=== PATIENT | male | born 1930 | race Caucasian/White ===

== ENCOUNTER 2016-11-25 15:19 | Inpatient (IN) | payer OTHER ==
--- NOTE | 2016-11-25 15:24 | EDPHY ---
H & P Time Seen by Provider: 11/25/16 15:21 HPI/ROS: CHIEF COMPLAINT: Shortness of breath HISTORY OF PRESENT ILLNESS: Patient is an 86-year-old man with a oxygen- dependent COPD who tells me he has been feeling short of breath "since last summer." About 5 weeks ago was pretty severe and he saw his physician a week ago, was prescribed Zithromax, which was finished yesterday. Has had a cough with brown mucus for the last to 2 weeks. He has had increased his oxygen from 2 and half to 4 L. Symptoms today are severe. Not associated with chest pain. REVIEW OF SYSTEMS: Eye: no change in vision ENT: no sore throat Cardiac: no chest pain or syncope Pulmonary: HPI Abdomen: no vomiting, diarrhea, abdominal pain. Black stools worse past 2 days. Musculoskeletal: no back pain, does have pedal edema. Skin: no rash Neuro: no headache Constitutional: no fever : no urinary symptoms A comprehensive 10 point review of systems is otherwise negative aside from elements mentioned in the history of present illness. PAST MEDICAL HISTORY: By Dr. Greenberg dated 06/22/2010 personally reviewed. Includes oxygen-dependent COPD, hypertension, BPH, ventral and inguinal hernia. Appendectomy in 1994, Lasik surgery. CLL Social history: Former smoker, quit in 1976. General Appearance: Alert and conversant, cooperative. Eyes: No scleral icterus. ENT, Mouth: Normal mucous membranes. Respiratory: Scattered wheezes, occasional rhonchi. Cardiovascular: Regular rate and rhythm. Gastrointestinal: Abdomen is soft and non tender. Dark black stool sent for Hemoccult. Neurological: Alert and oriented x3. Normally conversant. Face symmetric, normal movement and sensation in all extremities. Skin: Warm and dry, no rashes. Musculoskeletal: Bilateral 2+ pitting peripheral edema. Psychiatric: Not agitated. Emergency Department course/MDM: Patient presents with worsening COPD as well as possible evidence of acute upper gastrointestinal bleeding. Protonix 40 mg IV. Supplemental oxygen placed is the patient is 88% on 4-6 L, Oxymizer mask brings up to 94%. Plan for admission with Gastroenterology consultation. 1630: Results discussed. CT recommended by Kavitha, discussed and consented with the patient. 1720: Discussed with hospitalist and interventional radiology. Plan for venous ultrasound of the legs, will consider filter placement. Central Supply Manager hospitalist requested no anticoagulation at this time. Specific reason for no anticoagulation is the presence of active upper gastrointestinal bleeding, and hospitalist request. Per radiologist's the patient specifically does not have pneumonia. 1825: Ultrasound per sophy Miller shows left Jones cyst and no DVT. Constitutional: Initial Vital Signs Temperature (C) 36.7 C 11/25/16 15:24 Heart Rate 89 11/25/16 15:24 Respiratory Rate 20 11/25/16 15:24 Blood Pressure 135/52 H 11/25/16 15:24 O2 Sat (%) 88 L 11/25/16 15:24 O2 Delivery Mode Oxymizer O2 (L/minute) 6 Allergies/Adverse Reactions: pneumococcal vaccine [Pneumococcal Vaccine] Allergy (Unknown, Verified 06/22/10 09:35) Tetanus Vaccines and Toxoid [Tetanus] Allergy (Unknown, Verified 06/22/10 09:35) Home Medications: Medication Instructions Recorded Acetaminophen [Tylenol ES 500 mg 500 mg PO DAILY 11/25/16 (*)] Albuterol Sulfate [Proair Hfa] 2 puffs IH Q6H PRN 11/25/16 Calcium Carbonate [Calcium] 1,200 mg PO DAILY 11/25/16 Cholecalciferol Vit D3 [Vitamin D3 1,000 units PO DAILY 11/25/16 (*)] Doxazosin Mesylate 8 mg PO HS 11/25/16 Ferrous Sulfate [Ferrous Sulf 325 325 mg PO DAILY 11/25/16 MG (*)] Furosemide [Lasix 40 MG (*)] 40 mg PO DAILY 11/25/16 Ipratropium/Albuterol [Duoneb (*)] 3 ml IH Q6H PRN 11/25/16 Lisinopril [Zestril 20 mg (*)] 20 mg PO DAILY 11/25/16 Mometasone/Formoterol [Dulera 200 2 puffs IH BID 11/25/16 Mcg/5 Mcg Inhaler] Omeprazole 40 mg PO DAILY@1200 11/25/16 Medical Decision Making - Diagnostics EKG Interpretation: 12-lead EKG interpreted by me; official reading is in trace master. My interpretation is sinus rhythm with left axis and low frontal lead voltage, rate 80. Imaging Results: Imaging Impressions Chest X-Ray 11/25/16 15:51 Impression: 1. COPD and extensive perihilar bronchitis/bronchiolitis. 2. Interim development of patchy areas of airspace disease, some of which are irregularly-marginated (particularly in the right [id number] lung zones) and a new infiltrate in the lingula, with chronic right middle lobe atelectasis. While the above features may be related to areas of multicentric pneumonia, underlying neoplastic changes cannot be excluded. 3. Borderline-cardiomegaly. Findings were discussed with FAISAL KRAMER MD at 16:32, on 11/25/2016. Chest/Thorax CTA 11/25/16 16:30 Impression: 1. Small pulmonary embolus in the right upper lobe. 2. Right upper lobe 2-cm spiculated mass suspicious for bronchogenic carcinoma , with multiple enlarged mediastinal and bilateral hilar lymphadenopathy. 3. Small right pleural effusion and minimal left pleural effusion. 4. Bilateral chronic bronchitis and airways disease, with bilateral lower lobe mucous plugging. Findings and recommendations discussed with Emergency Department physician, Faisal Kramer M.D., at 1705 hours, on November 25, 2016. Final report concurs with initial preliminary interpretation. A test result has been communicated to a licensed care provider and documented in the [employer] Critical Result system on 11/25/2016 17:13, Message ID [id number]. Chest Xray reviewed with Kavitha 9200 Differential Diagnosis: Differential diagnosis considered for shortness of breath including but not limited to pulmonary infectious process, COPD, asthma, pulmonary embolus and congestive heart failure. Consult/Admit Bed Type: [place] 1722, [facility] [place] [facility]24, [facility] 1655 Critical Care Time: Critical care time spent by me, Dr. Kramer, exclusively with the care of this patient was 40 minutes, exclusive of PA or CONCRETE HANDLER time and exclusive of separate procedures. The organ system at risk was pulmonary and hematologic and I ordered supplemental oxygen, nebulizer bronchodilator treatments, intravenous proton pump inhibitor, discussion with master police detective and hospitalist and radiologist; to stabilize the patient and prevent worsening of the patient's condition. - Data Points Laboratory Results: Laboratory Results 11/25/16 15:45 11/25/16 15:45 11/25/16 11/25/16 11/25/16 16:02 15:45 15:45 WBC RBC Hgb POC Hgb 11.6 gm/dL L gm/dL (14.5-17.3) Hct POC Hct 34 % L % (42.8-50.6) MCV MCH MCHC RDW Plt Count MPV Neut % (Auto) Lymph % (Auto) [place] % (Auto) Eos % (Auto) Baso % (Auto) Nucleat RBC Rel Count Absolute Neuts (auto) Absolute Lymphs (auto) Absolute Monos (auto) Absolute Eos (auto) Absolute Basos (auto) Absolute Nucleated RBC Immature Gran % Seg Neutrophils % Lymphocytes % Monocytes % Eosinophils % Immature Gran # Absolute Seg Neuts Absolute Lymphocytes Absolute Monocytes Absolute Eosinophils Atypical Lymphocytes Platelet Estimate Hypochromasia Microcytic Cells Smear Review By PT 13.5 SEC SEC (12.0-15.0) INR 1.04 (0.83-1.16) APTT 33.1 SEC SEC (23.0-38.0) POC Sodium 138 mEq/L mEq/L (134-144) Sodium 134 mEq/L mEq/L (134-144) POC Potassium 4.0 mEq/L mEq/L (3.3-5.0) Potassium 4.2 mEq/L mEq/L (3.5-5.2) POC Chloride 96 mEq/L mEq/L (96-108) Chloride 98 mEq/L mEq/L (97-110) Carbon Dioxide 28 mEq/l mEq/l (22-31) Anion Gap 8 mEq/L mEq/L (8-16) POC BUN 14 mg/dL mg/dL (7-23) BUN 16 mg/dL mg/dL (7-23) Creatinine 0.7 mg/dL mg/dL (0.7-1.3) POC Creatinine 0.7 mg/dL L mg/dL (0.8-1.5) Estimated GFR > 60 Glucose 110 mg/dL H mg/dL (70-100) POC Glucose 113 mg/dL H mg/dL (70-100) Calcium 8.9 mg/dL mg/dL (8.5-10.4) Patient ABO/Rh Antibody Screen 11/25/16 11/25/16 15:45 15:45 WBC 23.58 10^3/uL H 10^3/uL (3.80-9.50) RBC 3.80 10^6/uL L 10^6/uL (4.40-6.38) Hgb 9.8 g/dL L g/dL (13.7-17.5) POC Hgb Hct 31.3 % L % (40.0-51.0) POC Hct MCV 82.4 fL fL (81.5-99.8) MCH 25.8 pg L pg (27.9-34.1) MCHC 31.3 g/dL L g/dL (32.4-36.7) RDW 19.9 % H % (11.5-15.2) Plt Count 164 10^3/uL 10^3/uL (150-400) MPV 10.2 fL fL (8.7-11.7) Neut % (Auto) Not Reported Lymph % (Auto) Not Reported [place] % (Auto) Not Reported Eos % (Auto) Not Reported Baso % (Auto) Not Reported Nucleat RBC Rel Count 0.0 % % (0.0-0.2) Absolute Neuts (auto) Not Reported Absolute Lymphs (auto) Not Reported Absolute Monos (auto) Not Reported Absolute Eos (auto) Not Reported Absolute Basos (auto) Not Reported Absolute Nucleated RBC 0.00 10^3/uL 10^3/uL (0-0.01) Immature Gran % Not Reported Seg Neutrophils % 16 % % Lymphocytes % 55 % % Monocytes % 28 % % Eosinophils % 1 % % Immature Gran # Not Reported Absolute Seg Neuts 3.77 10^/uL 10^/uL (1.70-6.50) Absolute Lymphocytes 12.97 10^3/uL H 10^3/uL (1.00-3.00) Absolute Monocytes 6.60 10^3/uL H 10^3/uL (0.30-0.80) Absolute Eosinophils 0.24 10^3/uL 10^3/uL (0.03-0.40) Atypical Lymphocytes 1+ H Platelet Estimate ADEQUATE (ADEQ) Hypochromasia 2+ H Microcytic Cells 1+ H Smear Review By Pending PT INR APTT POC Sodium Sodium POC Potassium Potassium POC Chloride Chloride Carbon Dioxide Anion Gap POC BUN BUN Creatinine POC Creatinine Estimated GFR Glucose POC Glucose Calcium Patient ABO/Rh A POSITIVE Antibody Screen NEGATIVE Medications Given: Discontinued Medications Albuterol/Ipratropium (Duoneb) 3 ml IH EDNOW ONE Stop: 11/25/16 15:52 Last Admin: 11/25/16 16:06 Dose: 3 ml Furosemide (Lasix Injection) 40 mg IVP ONCE ONE Stop: 11/25/16 18:10 Last Admin: 11/25/16 18:45 Dose: 40 mg Pantoprazole Sodium 40 mg/ (Sodium Chloride) 100 mls @ 200 mls/hr IV EDNOW ONE Stop: 11/25/16 16:37 Last Admin: 11/25/16 16:33 Dose: 100 mls Point of Care Test Results: 11/25/16 16:02 POC Sodium 138 POC Potassium 4.0 POC Chloride 96 POC BUN 14 POC Creatinine 0.7 L POC Glucose 113 H Departure - Departure Disposition: [facility] Acute Clinical Impression: Upper GI bleed, Chronic obstructive pulmonary disease with acute exacerbation Pulmonary embolism Qualifiers: Pulmonary embolism type: other Chronicity: acute Acute cor pulmonale presence: without acute cor pulmonale Qualified Code(s): I26.99 - Other pulmonary embolism without acute cor pulmonale Condition: Serious
[2016-11-25] MEDS ORDERED: IPRATROPIUM/ALBUTEROL 3 ML DEYVIAL IH ONE (15:51)
--- NOTE | 2016-11-25 16:01 | CPEKG ---
Heart Rate: 80 RR Interval: 750 P-R Interval: 140 QRSD Interval: 80 QT Interval: 360 QTC Interval: 416 P Franklin: 76 QRS Franklin: -42 T Wave Franklin: 54 EKG Severity - OTHERWISE NORMAL ECG - EKG Impression: SINUS RHYTHM EKG Impression: LEFT AXIS DEVIATION EKG Impression: LOW VOLTAGE IN FRONTAL LEADS Electronically Signed By: Taz Xie 25-Nov-2016 16:06:27
[2016-11-25 16:03] LABS: ADD DIFF? YES; ADD MORPH? NO; ATYPICAL LYMPHOCYTE FLAG 90 (0-99); FRAGMENT RBC FLAG 0 (0-99); HEMATOCRIT 31.3 % (40.0-51.0); HEMOGLOBIN 9.8 g/dL (13.7-17.5); LEFT SHIFT FLG 10 (0-99); LIPEMIA HEMOLYSIS FLAG 80 (0-99); MEAN CELL HEMOGLOBIN 25.8 pg (27.9-34.1); MEAN CELL HEMOGLOBIN CONCENTR. 31.3 g/dL (32.4-36.7); MEAN CELL VOLUME 82.4 fL (81.5-99.8); MEAN PLATELET VOLUME 10.2 fL (8.7-11.7); PLATELET CLUMPS FLAG 0 (0-99); PLATELET COUNT 164 10^3/uL (150-400); RED CELL DISTRIBUTION WIDTH 19.9 % (11.5-15.2)
[2016-11-25 16:04] LABS: ADD SCAN? NO
[2016-11-25] MEDS ORDERED: PANTOPRAZOLE SODIUM 40 MG in NS 100 ML IV ONE (16:08)
[2016-11-25 16:14] LABS: ANION GAP 8 mEq/L (8-16); CALCIUM 8.9 mg/dL (8.5-10.4); CARBON DIOXIDE 28 mEq/l (22-31); CHLORIDE 98 mEq/L (97-110); CREATININE 0.7 mg/dL (0.7-1.3); GLOMERULAR FILTRATION RATE > 60; GLUCOSE 110 mg/dL (70-100); POTASSIUM 4.2 mEq/L (3.5-5.2); SODIUM 134 mEq/L (134-144)
[2016-11-25] MEDS ORDERED: PANTOPRAZOLE SODIUM 40 MG VIAL ONE (16:26)
[2016-11-25] MEDS ORDERED: NS 100 ML BAG IV ONE (16:26)
[2016-11-25 16:27] LABS: HYPOCHROMIA 2+; MICROCYTES 1+; PLATELET ESTIMATE ADEQUATE (ADEQ)
[2016-11-25] MEDS ORDERED: IOPAMIDOL (ISOVUE 370) 100 ML BTL IV ONE (16:34)
[2016-11-25] MEDS ORDERED: ALBUTEROL 3 ML DEYVIAL IH PRN (17:59)
[2016-11-25] MEDS ORDERED: ACETAMINOPHEN 325 MG TAB PO PRN (17:59)
[2016-11-25] MEDS ORDERED: ZOLPIDEM TARTRATE 5 MG TAB PO PRN (17:59)
[2016-11-25] MEDS ORDERED: ONDANSETRON 4 MG/2 ML VIAL IVP PRN (17:59)
[2016-11-25] MEDS ORDERED: FUROSEMIDE 40 MG/4 ML VIAL IVP ONE (18:09)
--- NOTE | 2016-11-25 18:37 | PDGENHP ---
History and Physical History and Physical: HISTORY AND PHYSICAL CC: cough and sob HISTORY:the patient has chronic copd and r side chf with edema of legs, comes into the ER with cough and shortness of breath. Notably he was just treated recently with antibiotics for a respiratory infection by Dr. Dimas. It sounds like he was not necessarily evaluated with imaging at that time. He comes in today with worsening shortness of breath and cough. Notably he says that his legs are as usual fairly swollen but a little bit less swollen than they were before. He feels somewhat lightheaded. There is no fever. There is no chest pain or pleuritic pain is no pain in his legs. He does have also recently onset of melena for the last 7 days. He does not have abdominal pain nausea or vomiting. He is not on anticoagulants. He is being followed by Dr. Dinh Nicholson for CLL ROS: A comprehensive 10 system review revealed no other significant findings PAST MEDICAL HISTORY: CLL FAMILY MEDICAL HISTORY: SOCIAL HISTORY: MEDICATIONS: The patients list has been reconciled by our clinical pharmacist in the EMR. I have reviewed the list and ordered appropriate medicines. PHYSICAL EXAMINATION: Vital Signs: as I was in the room with him his pulse was 106 pedis pulses mostly in the 90s, blood pressure is stable, respirations are a bit fast, no fever Bread Panner: sinus rhythm Examination: General: alert, oriented, good mentation Skin: warm, dry, good color, no rash HEENT: normal Neck: no mass some mild JVD Resps: mildly labored Lungs: very diminished breath sounds without current wheeze but I am examining him after a nebulizer bronchodilator Heart: regular, no murmur Abdomen: soft, nondistended, nontender, +BS, no mass Upper Extremities: normal Lower Extremities: diffuse pitting edema of both legs from above the knee down to the ankles and some mild stasis dermatitis along with that No Bleeding or bruising Neurologic: normal speech/language, 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 I see a very small right lung single pulmonary embolism, a right lung mass which is peripheral and rounded without calcifications suspicious for possible malignancy, a right pleural effusion of moderate size, and a mid lung pneumonia on the left versus less likely mass there. I reviewed these images and described them with the patient at the bedside I also reviewed these findings with Dr. Jing barragan radiology Doppler ultrasound of both legs in the ER with no DVT found 12 LEAD EKG:I reviewed the tracing done in the ER which is normal ASSESSMENT: # Acute hypoxemic respiratory failure # R side CHF # Acute pulmonary embolism # Left lung pneumonia - recently finished oral abx for ? of pulm infection # acute upper GI bleed with melenic stools after being diagnosed with iron deficiency anemia 6 wit weeks ago, currently taking proton pump inhibitors and off his previous nonsteroidals # Right lung mass suspicious for malignancy probably lung primary # Post hemorrhagic anemia on top of anemia related to CLL # COPD exacerbation The biggest threat to the patient right now is a combination of bleeding and clotting. Cannot anticoagulate him with an undiagnosed upper GI bleed and melenic stools. He has significant right-sided heart failure at baseline which is a little worse now than usual and worse than usual hypoxemic respiratory failure due to pneumonia and PE with COPD exacerbation. Doing an upper endoscopy right now would be fairly risky from the cardiopulmonary standpoint. I have elected to ask for a vena cava filter and will not anticoagulate at this point. I will diurese him and treat his pneumonia and follow closely. Hopefully we can get his respiratory status and Cardiopulmonary status quickly to the point where doing an endoscopy seems safe improvement. PLANS: -I have reviewed in detail with Drs Rojas, melody, and Quinten -admission to hosp -IVC filter -no anticoag due to bleeding -IV proton pump inhibitor -Blood cultures -IV antibiotics -IV Lasix to treat his right-sided heart failure -Upper endoscopy either when respiratory issues stable enough or if he starts having unstable bleeding that requires more urgent endoscopy to the point where we would take on the cardiopulmonary risk -Will eventually need workup for his right upper lobe lung mass -Begin anticoagulation once GI bleed is diagnosed in securely stabilized - keep blood in the blood bank in case of need for transfusion from bleeding I have reviewed the patient's past medical records as part of this assessment, including past hospital records.
[2016-11-25 19:38] LABS: INR 1.04 (0.83-1.16); PROTIME(PATIENT) 13.5 SEC (12.0-15.0)
[2016-11-25 19:39] LABS: APTT 33.1 SEC (23.0-38.0)
[2016-11-25] MEDS: AZITHROMYCIN IV 500 MG in D5W 250 ML IV SCH (19:42)
[2016-11-25] MEDS ORDERED: fentaNYL 100 MCG/2 ML INJ ONE (20:19)
--- NOTE | 2016-11-25 20:34 | POSTOPPROG ---
Post Op Note Date of Operation: 11/25/16 Surgeon: Lucy Croft Pre-op Diagnosis: PE and GIB Post-op Diagnosis: same Indication: poor cardiopulmonary status Procedure: filter placement Findings: No clot in IVC or iliac veins. Inf/Abcess present in the surg proc area at time of surgery?: No Depth: Superfical (Skin SQ) EBL: Minimal Complications: None
[2016-11-25] MEDS ORDERED: IOPAMIDOL (ISOVUE-300) 100 ML BTL ONE (20:46)
[2016-11-25] MEDS ORDERED: DOXAZOSIN MESYLATE 8 MG PO SCH (21:00)
[2016-11-25] MEDS ORDERED: PANTOPRAZOLE SODIUM 40 MG in NS 100 ML IV SCH (21:00)
[2016-11-25] MEDS: PANTOPRAZOLE SODIUM 40 MG in NS 100 ML IV SCH (22:25)
[2016-11-25] MEDS: IPRATROPIUM/ALBUTEROL 3 ML DEYVIAL IH SCH (22:30)
[2016-11-25] MEDS: Mometasone/Formoterol [Dulera 200 Mcg/5 Mcg Inhaler] 2 PUFFS) IH SCH (22:30)
[2016-11-25] MEDS: DOXAZOSIN MESYLATE 4 MG TAB PO SCH (22:56)
[2016-11-26] MEDS ORDERED: MENTHOL 7.5 MG PO PRN (00:30)
[2016-11-26 05:08] LABS: ADD DIFF? YES; ADD MORPH? NO; ATYPICAL LYMPHOCYTE FLAG 90 (0-99); FRAGMENT RBC FLAG 20 (0-99); HEMATOCRIT 29.7 % (40.0-51.0); HEMOGLOBIN 9.1 g/dL (13.7-17.5); LEFT SHIFT FLG 10 (0-99); LIPEMIA HEMOLYSIS FLAG 80 (0-99); MEAN CELL HEMOGLOBIN 25.4 pg (27.9-34.1); MEAN CELL HEMOGLOBIN CONCENTR. 30.6 g/dL (32.4-36.7); MEAN PLATELET VOLUME 10.4 fL (8.7-11.7); PLATELET CLUMPS FLAG 0 (0-99); PLATELET COUNT 162 10^3/uL (150-400); RED BLOOD CELL COUNT 3.58 10^6/uL (4.40-6.38); RED CELL DISTRIBUTION WIDTH 19.9 % (11.5-15.2)
[2016-11-26 05:19] LABS: ALANINE AMINOTRANSFERASE 35 IU/L (21-72); ALKALINE PHOSPHATASE 54 IU/L (38-126); ANION GAP 10 mEq/L (8-16); ASPARTATE AMINOTRANSFERASE 19 IU/L (17-59); BILIRUBIN,TOTAL 0.6 mg/dL (0.1-1.4); CALCIUM 8.6 mg/dL (8.5-10.4); CARBON DIOXIDE 29 mEq/l (22-31); CHLORIDE 98 mEq/L (97-110); CREATININE 0.7 mg/dL (0.7-1.3); GLOMERULAR FILTRATION RATE > 60; GLUCOSE 83 mg/dL (70-100); POTASSIUM 4.1 mEq/L (3.5-5.2); SODIUM 137 mEq/L (134-144); TOTAL PROTEIN 5.9 g/dL (6.3-8.2)
[2016-11-26] MEDS: IPRATROPIUM/ALBUTEROL 3 ML DEYVIAL IH SCH ×4 (05:24→21:54)
[2016-11-26 05:31] LABS: ADD SCAN? NO; TROPONIN I 0.016 ng/mL (0-0.034)
[2016-11-26 05:59] LABS: HYPOCHROMIA 1+
[2016-11-26 06:00] LABS: MICROCYTES 1+; PLATELET ESTIMATE ADEQUATE (ADEQ)
[2016-11-26] MEDS: AZITHROMYCIN IV 500 MG in D5W 250 ML IV SCH (08:26)
[2016-11-26] MEDS: FERROUS SULFATE 325 MG TAB PO SCH (08:27)
[2016-11-26] MEDS: PANTOPRAZOLE SODIUM 40 MG in NS 100 ML IV SCH (08:27)
[2016-11-26] MEDS: LISINOPRIL 20 MG TAB PO SCH ×2 (08:27→09:30)
[2016-11-26] MEDS: Mometasone/Formoterol [Dulera 200 Mcg/5 Mcg Inhaler] 2 PUFFS) IH SCH ×2 (08:52→20:31)
[2016-11-26 10:49] LABS: HEMATOCRIT 30.3 % (40.0-51.0); HEMOGLOBIN 9.3 g/dL (13.7-17.5)
[2016-11-26] MEDS: FUROSEMIDE 20 MG/2 ML VIAL IVP SCH ×2 (11:04→15:04)
--- NOTE | 2016-11-26 11:39 | GCON ---
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 HISTORY OF PRESENT ILLNESS: The patient is an extremely pleasant 86-year-old white male with a past medical history of chronic obstructive pulmonary disease for which he is followed by Dr. Perez [facility], as well as CLL for which he is followed by Dr. Dinh Nicholson. He presented to the emergency ro om with complaints of increasing breathlessness as well as cough. He had recently been treated for bronchitis. He began having increasing swelling of the lower extremities as well as some lightheade dness. He was seen in the emergency room and subsequently admitted to the intensive care unit. CT angiogra m of the chest revealed a small pulmonary embolus in the right upper lobe and a 2 cm spiculated mass in the right upper lobe. He was also found to have a GI bleed and was somewhat anemic. An IVC benigno ter was subsequently placed. In discussion with the patient, he states he feels somewhat better. H e does admit to a cough that is productive of whitish sputum. There is no hemoptysis. He denies an y chest pain, pleuritic-type chest pain or angina equivalent. No fever or night sweats. PAST MEDICAL HISTORY: Significant for chronic obstructive pulmonary disease and CLL. ALLERGIES: Pneumococcal vaccine, tetanus vaccine, and tetanus toxoid. SOCIAL HISTORY: Previous heavy smoker, none for over 40 years. No significant alcohol use. 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 He is and has excellent family support. MEDICATIONS: At home include Dulera, doxazosin, DuoNeb, Klor-Con, Lasix, lisinopril, ProAir. PHYSICAL EXAM: VITAL SIGNS: Blood pressure is 120/49, pulse 73, respirations are 19, temperature i s 36.8, oxygen saturation 94% on 8 L OxyMask. GENERAL: He is a thin but well-developed elderly whi te male who is resting comfortably on supplemental oxygen. HEENT: Eyes: TAMIKO. EOMI. Throat exam is deferred. NECK: Supple. There is no cervical adenopathy. HEART: Regular rate and rhythm wit h a 2/6 systolic murmur at the left sternal border without radiation. LUNGS: Diminished breath bessy nds. Significant prolongation in expiratory phase. There are scattered rhonchi. ABDOMEN: Soft, n ontender. Bowel sounds are present in all 4 quadrants. EXTREMITIES: No clubbing, cyanosis, or james ma. LABORATORY DATA: White count is 24.5, hemoglobin 9.3, hematocrit 30, platelet count is 162. Sodium is 137, potassium 4.1, chloride 98, CO2 29, BUN 13, creatinine 0.7, glucose is 83. BNP is elevated at 1140. Total protein 5.9, albumin is 3. Stool for occult blood is positive. Again, CT angiogram of the chest shows a right upper lobe pulmonary embolus which is small. He also has a right upper lobe 2 cm spiculated mass. IMPRESSION: 1. Acute pulmonary embolus. 2. Status post IVC filter. 3. Gastrointestinal bleed. 4. Anemia. 5. Chronic obstructive pulmonary disease acute exacerbation. 6. Cor pulmonale. RECOMMENDATIONS: 1. Agree with the IVC filter. 2. Would consult GI for endoscopy. 3. Follow H and H closely. 4. Frequent nebulizer use with both albuterol and Atrovent. 5. Continue with Dulera. 6. Hold his steroids for now. 7. Workup for his right upper lobe mass can be performed as an outpatient. /[id number]/MODL
[2016-11-26] MEDS ORDERED: fentaNYL 100 MCG/2 ML INJ ONE (13:06)
[2016-11-26] MEDS ORDERED: PROPOFOL 200 MG/20 ML VIAL ONE (13:07)
[2016-11-26] MEDS ORDERED: LIDOCAINE 2% 100 MG/5 ML SYR ONE (13:08)
--- NOTE | 2016-11-26 13:14 | HOSPPROG ---
Hospitalist Progress Note Assessment/Plan: #Acute PE: cannot anticoagulate at this time with UGIB. IVC filter placed 11/25. TTE pending #UGIB: recent use of ASA/Advil. Appreciate GI consult. Plan for EGD today. IV PPI #Acute blood loss anemia: due to GIB. H/H stable #COPD: cont home inhalers. Hold steroids with GIB #CLL: followed by Dr. Nicholson #Right upper lobe mass: evaluate outpatient #Acute hypoxemic resp failure: due to PE, RHF. TTE pending. Suspect due to RHF. Cont IV lasix #Benign HTN: hold BP meds #Diet: NPO for now #DVT ppx: SCDs with UGIB #Disp: warrants inpatient admission with UGIB, PE requiring EGD, telemetry Subjective: denies CP or SOB this morning Objective: Vital Signs Temp Pulse Resp BP Pulse Ox 530.5 C H 74 20 117/70 95 11/26/16 12:00 11/26/16 12:00 11/26/16 10:52 11/26/16 12:00 11/26/16 12:00 Laboratory Results 11/26/16 10:40 11/26/16 04:45 11/25/16 11/26/16 11/27/16 05:59 05:59 05:59 Intake Total 800 Output Total 1325 800 Balance -525 -800 PT 13.5 SEC (12.0-15.0) 11/25/16 15:45 INR 1.04 (0.83-1.16) 11/25/16 15:45 - Physical Exam Constitutional: no apparent distress, appears nourished Eyes: PERRL, anicteric sclera Ears, Nose, Mouth, Throat: moist mucous membranes, hearing normal Cardiovascular: edema (+2 edema to shins), other Respiratory: no respiratory distress, no rales or rhonchi Gastrointestinal: normoactive bowel sounds, soft, non-tender abdomen, no palpable masses Genitourinary: no bladder fullness, no bladder tenderness Skin: warm Musculoskeletal: full muscle strength Neurologic: AAOx3, CN II-XII Intact Psychiatric: interacting appropriately ICD10 Worksheet Patient Problems: Problems Problem Status Onset Upper GI bleed Acute Chronic obstructive pulmonary disease with acute exacerbation Acute Pulmonary embolism Acute
[2016-11-26] MEDS ORDERED: PHENYLEPHRINE HCL 100 MCG/ML SYR ONE (13:22)
[2016-11-26] MEDS ORDERED: epHEDrine SULFATE 10 MG/ML SYR ONE (13:25)
--- NOTE | 2016-11-26 13:39 | GCON ---
[f rep st] CONSULTATION CHIEF COMPLAINT: Melena. 86-year-old male with COPD, cough, pulmonary embolus and melena. HISTORY OF PRESENT ILLNESS: This gentleman has chronic COPD, right-sided congestive heart failure with edema. Presented to the emergency room with cough and increasing shortness of breath. He was recently started on antibiotics for a respiratory infection by his tool adjuster, Dr. Dimas. He had worsening shortness of breath. He had no chest pain or discomfort. He does have a history of CLL and is followed by Dr. Nicholson. He is not on any particular treatment for CLL. He is not on any anticoagulation. He has been taking nonsteroidals but also has been on a proton pump inhibitor. He was found to have some worsening of his respiratory failure. He had some right- sided congestive heart failure. He had also evidence of a small pulmonary embolus in the right lung. There was also a questionable right lung mass in the periphery suspicious for possible malignancy. He had a right pleural effusion. he had a Whitley filter placed last evening. He has had a cardiac echo this morning with reported normal LV function. He has been having some melenic stool for the last several days. I was asked the patient for further evaluation. PAST MEDICAL HISTORY: Remarkable for CLL, COPD. ALLERGIES: He has allergies to the pneumococcal vaccine and tetanus toxoid. SOCIAL HISTORY: Previous heavy smoker for 40 years. No history of any alcohol use. 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 . FAMILY HISTORY: Negative as it pertains to chief complaint. MEDICATIONS: Prior to admission included Dulera, doxazosin, DuoNeb, Lasix, lisinopril, and ProAir. REVIEW OF SYSTEMS: Negative for 10 systems other than mentioned in the HPI. PHYSICAL EXAM: VITAL SIGNS: 120/49, pulse 73, respiratory rate 19, temperature 36.8. GENERAL: Elderly gentleman in no acute distress. HEENT: Normocephalic, atraumatic. EOMI. Neck is supple. No cervical adenopathy. No thyromegaly. Mucous membranes moist. LUNGS: Clear. Distant breath sounds. CARDIAC: Normal S1, S2 without murmur. ABDOMEN: Soft, benign, nontender. No hepatosplenomegaly. Does have an umbilical hernia. EXTREMITIES: Without clubbing, cyanosis, edema. NEURO: Nonfocal. SKIN: Warm, dry, intact. PSYCH : Alert and oriented x3 with normal affect. LABORATORY DATA: White count 24.56, hemoglobin 9.1, hematocrit 29.7, platelets of 162. PTT of 13.5, INR of 1.04 and PTT of 33.1. Serum chemistries: Serum sodium 137, potassium 4.1, chloride of 98, CO2 of 29, BUN 13, creatinine is 0.7. IMPRESSION: 86-year-old gentleman with melenic stool, anemia. RECOMMENDATIONS: IV Protonix. N.p.o. Proceed with diagnostic endoscopy. Will follow with you. /[id number]/MODL MTDD
--- NOTE | 2016-11-26 13:47 | ECHO ---
[id number] + + [address] : : [place] [address] : : [phone] + + Adult Echocardiographic Report + -------+ :Name: JULIA SILVERMAN WStudy Date: 11/26/2016 11:21 AM : : Hospital Admission Number: [id number] Locati on: 245: :: 1930 Gender: Male Height: 72 in : :Age: 86 yrs Race: WH Weight: 178 lb : :Reason For Study: Eval RV Function : : BSA: 2.0 meter s2 : :History: PE, Pneumonia : + -------+ MMode/2D Measurements \T\ Calculations IVSd: 0.81 cm LVIDd: 5.4 cm FS: 42.1 % Ao root diam: 3.6 cm LVPWd: 1.0 cm LVIDs: 3.1 cm EDV(Teich): 143.3 ml ACS: 0.82 cm ESV(Teich): 39.2 ml LA dimension: 4.8 cm EF(Teich): 72.6 % LVOT diam: 2.1 cm LVOT area: 3.5 cm2 Normal Measurement Values: + + :LVIDd (3.5-5.7cm) IVSd (0.6-1.1cm) LVPWd (0.6-1.1cm) Aortic Root (2.0-3.7cm)Left Atrium (1.5-4.0cm): :LV Vol(d) (76-115ml) LV Vol(s) (29-48ml) Ejec Fraction (50-65%)PV Zion (0.6- 1.2m/s) TV Zion (0.4-1.0m/s) : :MV E Zion (0.8-1.0m/s)MV A Zion (0.3-1.0m/s)LVOT Zion (0.7-1.2m/s) Asc Ao Zion ( 0.9-1.8m/s) : + + Doppler Measurements \T\ Calculations MV E max zion: Ao V2 max: LV V1 mean PG: SV(LVOT): 107.6 cm/sec 229.1 cm/sec 3.3 mmHg 93.9 ml MV A max zion: Ao max P.0 mmHgLV V1 mean: 107.6 cm/sec Ao mean P.4 cm/sec MV E/A: 1.0 13.1 mmHg LV V1 VTI: 27.1 cm Ao V2 mean: 168.9 cm/sec Ao V2 VTI: 47.0 cm ALEXY(I,D): 2.0 cm2 PA V2 max: TR max zion: 119.4 cm/sec 343.9 cm/sec PA max P.7 mmHg TR max P.3 mmHg RAP systole: 5.0 mmHg RVSP(TR): 52.3 mmHg Left Ventricle The left ventricle is normal in size. There is normal left ventricular wall thickness. Ejection Fraction = 72%. There is Doppler evidence for diastolic dysfunction. The left ventricular wall motion is normal. Right Ventricle The right ventricle is mild to moderately dilated. The right ventricular systolic function is normal. Atria The left atrium is mildly dilated. Right atrial size is normal. Mitral Valve There is mild focal posterior mitral valve calcification. Mild mitral valve prolapse. There is no mitral valve stenosis. There is mild mitral regurgitation. Tricuspid Valve There is mild tricuspid regurgitation. Right ventricular systolic pressure is 53mmHg. There is Doppler evidence for moderate pulmonary hypertension. Aortic Valve The aortic valve is trileaflet. Moderate Aortic Valve Calcification. The Ao V2 max is 2.3 m/sec with an Ao mean PG of 13 and a Ao max PG of 21 mmHg. Mild . There is no aortic insufficiency. Pulmonic Valve The pulmonic valve is normal in structure and function. There is no pulmonic valvular regurgitation. Great Vessels The aortic root is normal size. Pericardium/Pleural Small anterior pericardial effusion. Conclusion A complete two-dimensional transthoracic echocardiogram was performed (2D, M-mode, Doppler and color flow Doppler). Ejection Fraction = 72%. There is Doppler evidence for diastolic dysfunction. The left ventricular wall motion is normal. The left atrium is mildly dilated. There is mild focal posterior mitral valve calcification. Mild mitral valve prolapse There is mild mitral regurgitation. There is mild tricuspid regurgitation. Right ventricular systolic pressure is 53mmHg. There is Doppler evidence for moderate pulmonary hypertension. The aortic valve is trileaflet. Moderate Aortic Valve Calcification The Ao V2 max is 2.3 m/sec with an Ao mean PG of 13 and a Ao max PG of 21 mmHg. Mild The pulmonic valve is normal in structure and function. The aortic root is normal size. Small anterior pericardial effusion Compared with 06/23/2010, RV is now dilated Final Reading Physician: Dr Lisandra Lassiter electronically signed on 11/26/2016 01:46 PM Ordering Physician: Hannah Burgess Performed By: Jeremy Thacker, ROWANCS
--- NOTE | 2016-11-26 14:29 | GPN ---
[f rep st] PROCEDURE NOTE PROCEDURE: Esophagogastroduodenoscopy with biopsies. PREOPERATIVE DIAGNOSES: 1. Anemia. 2. Melena. POSTOPERATIVE DIAGNOSES: 1. Normal upper endoscopy. 2. Small hiatal hernia. 3. Mild gastritis. 4. Status post biopsy antrum body for Helicobacter pylori and histology. INDICATIONS: 86-year-old gentleman with history of CLL, COPD, recent PE, pulmonary mass. Patient r eported to have melena for several days prior to admission. Was noted to be anemic. Presents now f or upper endoscopy. Has had NSAID use. Denied nausea, vomiting, or epigastric pain. PHYSICAL EXAM: VITAL SIGNS: Stable. LUNGS: Clear. CARDIAC: Normal S1, S2. PERMIT: Procedure was explained to the patient. Risks and benefits of the procedure outlined to e patient. Informed consent was obtained. PREOPERATIVE MEDICATIONS: General anesthesia. FINDINGS OF PROCEDURE: Patient was placed in the left lateral decubitus position. GIF-180 video sc ope was passed in the oropharynx under direct vision. The GE junction is about 45 cm. He had a nor mal-appearing esophagus. There was a moderate-sized hiatal hernia in the proximal stomach. Endosco pe was passed into the distal stomach. He had a normal-appearing antrum and body. Normal pylorus. Endoscope was passed to the 1st and 2nd portion of the duodenum. Duodenal sweep was normal. Endos cope was brought back into the stomach. Retroflex view of the stomach revealed a normal angularis, fundus, and cardia. Endoscope was unretroflexed. Antrum and body showed mild erythema. Biopsies o btained for histology and H pylori. Endoscope was then withdrawn. IMPRESSION: Essentially normal upper endoscopy, other than hiatal hernia and mild gastritis. RECOMMENDATIONS: Pantoprazole 40 mg a day. Advance diet as tolerated to cardiac diet. Will await biopsy results. Follow clinically. /[id number]/MODL
[2016-11-26] MEDS: ENOXAPARIN 80 MG/0.8 ML SYR SC SCH ×2 (15:04→20:29)
[2016-11-26] MEDS ORDERED: PANTOPRAZOLE SODIUM 40 MG TAB PO SCH (15:45)
[2016-11-26] MEDS: DOXAZOSIN MESYLATE 4 MG TAB PO SCH (20:29)
[2016-11-26 23:15] VITALS: RESP 20
[2016-11-27 04:53] VITALS: BP 117/57; TEMP 98.6
[2016-11-27 04:58] LABS: HEMATOCRIT 29.3 % (40.0-51.0); HEMOGLOBIN 8.9 g/dL (13.7-17.5); MEAN CELL HEMOGLOBIN 25.7 pg (27.9-34.1); MEAN CELL HEMOGLOBIN CONCENTR. 30.4 g/dL (32.4-36.7); MEAN CELL VOLUME 84.7 fL (81.5-99.8); RED BLOOD CELL COUNT 3.46 10^6/uL (4.40-6.38); RED CELL DISTRIBUTION WIDTH 19.7 % (11.5-15.2)
[2016-11-27 05:15] LABS: ANION GAP 11 mEq/L (8-16); CALCIUM 8.5 mg/dL (8.5-10.4); CARBON DIOXIDE 30 mEq/l (22-31); CHLORIDE 98 mEq/L (97-110); CREATININE 0.7 mg/dL (0.7-1.3); GLOMERULAR FILTRATION RATE > 60; GLUCOSE 87 mg/dL (70-100); POTASSIUM 3.8 mEq/L (3.5-5.2); SODIUM 139 mEq/L (134-144)
[2016-11-27] MEDS: IPRATROPIUM/ALBUTEROL 3 ML DEYVIAL IH SCH ×2 (06:23→09:04)
[2016-11-27] MEDS ORDERED: AZITHROMYCIN 250 MG TAB PO SCH (09:00)
[2016-11-27] MEDS ORDERED: PANTOPRAZOLE SODIUM 40 MG TAB PO SCH (09:00)
[2016-11-27] MEDS ORDERED: FUROSEMIDE 20 MG TAB PO SCH (09:00)
[2016-11-27] MEDS: Mometasone/Formoterol [Dulera 200 Mcg/5 Mcg Inhaler] 2 PUFFS) IH SCH (09:05)
[2016-11-27] MEDS: FERROUS SULFATE 325 MG TAB PO SCH (09:41)
--- NOTE | 2016-11-27 11:22 | GDS ---
[f rep st] DISCHARGE SUMMARY DISCHARGE DIAGNOSES: 1. Upper gastrointestinal bleed. 2. Acute pulmonary embolism. 3. Right upper lobe lung mass. 4. Acute blood loss anemia. 5. Chronic obstructive pulmonary disease. 6. CLL. 7. Thlxa-gb-evhevwy hypoxemic respiratory failure. 8. Benign hypertension. 9. Community-acquired pneumonia. PROCEDURES: IVC filter placement on 11/25/2016. HISTORY OF PRESENT ILLNESS: Patient is an 86-year-old male with history of COPD , CLL, and right-sided heart failure presenting with swelling of his legs and shortness of breath. He was just treated with antibiotics for a respiratory infection by Dr. Dimas. He presented at the time of admission with worsening shortness of breath and cough. [place] lightheaded. Denied fevers, chills, or sweats. HOSPITAL COURSE: 1. Jrisu-db-resmfit hypoxemic respiratory failure. Multifactorial with acute PE, right-sided heart failure, pneumonia. Patient was initially not anticoagulated given upper GI bleed. IVC filter was placed on 11/[address] Corft. Underwent EGD without evidence of bleed, thus, was started on anticoagulation here with no signs of bleeding. 2: Acute pulmonary embolism. concern of malignancy with lung mass. I had a long discussion with patient in regard to Coumadin versus novel anticoagulant. He would prefer Eliquis. I gave explicit return precautions if any bleeding. 3. Upper GI bleed. Patient endorses recent aspirin and NSAID use. He underwent EGD without evidence of bleeding. Will continue PPI. 4. Community-acquired pneumonia. Was treated with IV antibiotics here. Will transition to azithromycin to complete 5 day course. 5. Right lung mass. This is spiculated, suspicious for malignancy. He will follow up as an outpatient for further evaluation. 6. CLL. The patient is followed closely by Dr. Nicholson. 7. COPD exacerbation. Patient treated with DuoNeb and antibiotics. Continue azithromycin. No steroids given acute GI bleed. DISPOSITION: Patient is stable for discharge. FOLLOWUP: 1. PCP. 2. Dr. Nicholson for CLL. 3. Dr. Dimas with pulmonology for evaluation of lung mass. Time spent on discharge: Greater than 60 minutes discussing risks and benefits of anticoagulation as patient with recent GI bleed. The patient understands the risks and opted for Eliquis as treatment. /[id number]/MODL MTDD
[2016-11-27 11:30] VITALS: PULSE 83; O2SAT 90
== END 2016-11-27 12:24 | disposition home or self-care (01) | DRG 166 ==
LOC: F2N 21:00 → F3E 11-26 15:54
PROVIDERS: ADMIT Internal Medicine; ATTEND Internal Medicine
PROC: 06H03DZ Insertion of Intraluminal Device into Inferior Vena Cava, Percutaneous Approach (ICD-10-PCS; 2016-11-26)
PROC: 0DB98ZX Excision of Duodenum, Via Natural or Artificial Opening Endoscopic, Diagnostic (ICD-10-PCS; principal; 2016-11-26 13:08)
DX: I26.09 Other pulmonary embolism with acute cor pulmonale (principal); J18.8 Other pneumonia, unspecified organism; J96.21 Acute and chronic respiratory failure with hypoxia; C91.10 Chronic lymphocytic leukemia of B-cell type not having achieved remission; K92.2 Gastrointestinal hemorrhage, unspecified; D62 Acute posthemorrhagic anemia; J44.1 Chronic obstructive pulmonary disease with (acute) exacerbation; R91.8 Other nonspecific abnormal finding of lung field; I11.0 Hypertensive heart disease with heart failure; I50.9 Heart failure, unspecified; K44.9 Diaphragmatic hernia without obstruction or gangrene; K29.70 Gastritis, unspecified, without bleeding; Z99.81 Dependence on supplemental oxygen; Z87.891 Personal history of nicotine dependence
CPT/HCPCS: 82947-QW; 96365; C1769; J0456; J0696; J1644; J1650; J2001; J2370; J2704; J3010; Q9967

== ENCOUNTER → 2017-01-25 | Outpatient (CLI) | payer OTHER | LOC: FIMAGING 11:12 | PROVIDERS: ATTEND Internal Medicine Pulmonary Disease | DX: R59.0 Localized enlarged lymph nodes (principal); R60.9 Edema, unspecified ==

== ENCOUNTER 2017-03-22 11:45 | Day surgery (SDC) | payer OTHER ==
[2017-03-22 14:03] LABS: INR 1.15 (0.83-1.16); PROTIME(PATIENT) 14.6 SEC (12.0-15.0)
[2017-03-22 14:04] LABS: % IMMATURE GRANULYOCYTES 0.3 % (0.0-1.1); ABSOLUTE IMMATURE GRANULOCYTES 0.06 10^3/uL (0.00-0.10); ADD DIFF? NO; ADD MORPH? NO; ADD SCAN? YES; APTT 27.5 SEC (23.0-38.0); ATYPICAL LYMPHOCYTE FLAG 60 (0-99); FRAGMENT RBC FLAG 0 (0-99); HEMATOCRIT 27.9 % (40.0-51.0); HEMOGLOBIN 8.6 g/dL (13.7-17.5); LEFT SHIFT FLG 0 (0-99); LIPEMIA HEMOLYSIS FLAG 80 (0-99); MEAN CELL HEMOGLOBIN 27.5 pg (27.9-34.1); MEAN CELL HEMOGLOBIN CONCENTR. 30.8 g/dL (32.4-36.7); MEAN CELL VOLUME 89.1 fL (81.5-99.8); MEAN PLATELET VOLUME 9.3 fL (8.7-11.7); PLATELET CLUMPS FLAG 0 (0-99); PLATELET COUNT 149 10^3/uL (150-400); RED BLOOD CELL COUNT 3.13 10^6/uL (4.40-6.38); RED CELL DISTRIBUTION WIDTH 17.6 % (11.5-15.2)
[2017-03-22 14:08] LABS: ALANINE AMINOTRANSFERASE 26 IU/L (21-72); ALBUMIN 3.1 g/dL (3.5-5.0); ALKALINE PHOSPHATASE 71 IU/L (38-126); ANION GAP 10 mEq/L (8-16); ASPARTATE AMINOTRANSFERASE 15 IU/L (17-59); BILIRUBIN,TOTAL 0.6 mg/dL (0.1-1.4); CALCIUM 8.5 mg/dL (8.5-10.4); CARBON DIOXIDE 28 mEq/l (22-31); CHLORIDE 100 mEq/L (97-110); CREATININE 0.7 mg/dL (0.7-1.3); GLOMERULAR FILTRATION RATE > 60; GLUCOSE 90 mg/dL (70-100); SODIUM 138 mEq/L (134-144); TOTAL PROTEIN 7.3 g/dL (6.3-8.2)
[2017-03-22 14:48] LABS: SCAN POSITIVE
[2017-03-22 14:52] LABS: PLATELET ESTIMATE DECREASED (ADEQ)
[2017-03-22 15:01] LABS: POLYCHROMASIA 1+
[2017-03-22] MEDS ORDERED: IOPAMIDOL (ISOVUE-300) 100 ML BTL ONE (16:03)
[2017-03-22] MEDS ORDERED: IOPAMIDOL (ISOVUE 370) 100 ML BTL IV ONE (16:27)
== END 2017-03-22 17:30 | disposition home or self-care (01) ==
LOC: FIMAGING 11:45
PROVIDERS: ATTEND Internal Medicine Hematology & Oncology
DX: Z45.2 Encounter for adjustment and management of vascular access device (principal); Z53.09 Procedure and treatment not carried out because of other contraindication; C91.10 Chronic lymphocytic leukemia of B-cell type not having achieved remission; I50.9 Heart failure, unspecified; J90 Pleural effusion, not elsewhere classified; R60.0 Localized edema; R59.9 Enlarged lymph nodes, unspecified; R91.1 Solitary pulmonary nodule; K43.9 Ventral hernia without obstruction or gangrene; R16.1 Splenomegaly, not elsewhere classified; Z86.711 Personal history of pulmonary embolism; Z87.891 Personal history of nicotine dependence
CPT/HCPCS: Q9967

== ENCOUNTER → 2017-03-25 | Day surgery (SDC) | payer OTHER ==
[~2017-03-25] MED LIST: IOPAMIDOL (ISOVUE-370) 150 ML BTL IV ONE; MIDAZOLAM 2 MG/2 ML VIAL ONE; NS 1,000 ML IV SCH; fentaNYL 100 MCG/2 ML INJ ONE
== END | disposition home or self-care (01) ==
LOC: FIMAGING 11:37
PROVIDERS: ATTEND Internal Medicine Hematology & Oncology
PROC: 06PY3DZ Removal of Intraluminal Device from Lower Vein, Percutaneous Approach (ICD-10-PCS; principal; 2017-03-25)
DX: Z45.89 Encounter for adjustment and management of other implanted devices (principal); Z86.711 Personal history of pulmonary embolism
CPT/HCPCS: 37193; 75825; 99152; C1769; C1773; C1892; J1644; J2250; J3010; Q9967